=== PATIENT | male | born 1955 | race African-American/Black ===

== ENCOUNTER 2016-06-02 21:55 | Emergency (ER) | payer OTHER ==
[~2016-06-02 21:55] MED LIST: Dextrose 5 %-0.45 % NaCl 1000 ml Bag ONE
--- NOTE | 2016-06-02 22:30 | RAD ---
LEFT FOREARM TWO VIEWS: History: Fall, left arm injury. FINDINGS: The radius and ulnar are intact. No displaced fractures are apparent. IMPRESSION: No acute osseous abnormalities are demonstrated. POS: [facility]
[2016-06-02] MEDS ORDERED: Ondansetron HCl/PF 4 MG/2 ML Vial ONE (22:42)
[2016-06-02] MEDS ORDERED: Multivit, Adult Inj 10 ML VIAL ONE (22:42)
[2016-06-02] MEDS ORDERED: Ketorolac Tromethamine 30 MG/ML VIAL ONE (22:42)
[2016-06-02] MEDS ORDERED: Thiamine HCl 200 MG/2 ML VIAL ONE (22:42)
[2016-06-02 22:55] LABS: #Basophils 0.1 thou/uL (0.0-0.2); #Eosinphils 0.1 thou/uL (0.0-0.7); #Monocytes 0.9 thou/uL (0.11-0.59); #Neutrophils 3.8 thou/uL (1.40-6.50); %Basophils 1.3 % (0.0-1.0); %Eosinophils 1.5 % (0.0-10.0); %Lymphocytes 29.2 % (21.0-51.0); %Monocytes 12.4 % (0.0-10.0); %Neutrophils 55.7 % (42.0-75.0); Mean Corpuscular HGB CONC 33.5 g/dL (32.0-36.0); Mean Corpuscular Hemoglobin 30.8 pg (27.0-31.0); Mean Platelet Volume 7.8 fL (7.4-10.4); Platelet Count 193 thou/uL (130-400); RBC Distribution Width 13.2 % (11.5-14.5); Red Blood Cell (RBC) Count 3.89 mill/uL (4.70-6.10); White Blood Cell (WBC) Count 6.9 thou/uL (4.8-10.8)
[2016-06-02 23:11] LABS: Bilirubin Negative (Negative); Blood, Urine Trace (Negative); Clarity Clear (Clear); Glucose, Urine (Dipstick) Negative (Negative); Leukocyte Negative (Negative); Nitrite Negative (Negative); Protein, Urine (Dipstick) 30 mg/dL (Neg-Trace); Urobilinogen 0.2 mg/dL (0.2-1.0); pH, Urine 5.5 (5.0-9.0)
[2016-06-02 23:12] LABS: ALT (SGPT) 33 U/L (0-55); AST (SGOT) 48 U/L (5-34); Acetaminophen Less than 3.0 mcg/mL (10.0-30.0); Albumin 3.6 g/dL (3.4-4.8); Alcohol 43 mg/dL (Less than 10); Alkaline Phosphatase 82 U/L (40-150); Anion Gap 16 mmol/L (10-20); BUN (Urea Nitrogen) 41 mg/dL (8.4-25.7); Bilirubin, Total Less than 0.3 mg/dL (0.2-1.2); CK (CPK) 181 U/L (30-200); CKMB 3.1 ng/mL (0-6.6); Calc. Creatinine Clearance 0 mL/min (70-130); Calcium 8.6 mg/dL (7.8-10.44); Carbon Dioxide 13 mmol/L (23-31); Chloride 107 mmol/L (98-107); Estimated GFR-MDRD 38; Globulin 2.8 g/dL (2.4-3.5); Glucose 94 mg/dL (80-115); Potassium 4.9 mmol/L (3.5-5.1); Protein, Total 6.4 g/dL (5.8-8.1); Salicylate Less than 5.0 mg/dL (15.0-30.0); Sodium 131 mmol/L (136-145); Troponin I Less than 0.010 ng/mL (< 0.028)
[2016-06-02 23:18] LABS: Amphetamine Not Detected (NotDetected); Bacteria/HPF Rare-Few HPF (None Seen); Barbiturates Screen Not Detected (NotDetected); Benzodiazepine Screen Not Detected (NotDetected); Cocaine Metabolite Screen Detected (NotDetected); Medtox Control Line Valid? VALID (VALID); Methadone Not Detected (NotDetected); Methamphetamine Not Detected (NotDetected); Opiate Screen Not Detected (NotDetected); Oxycodone Screen Not Detected (NotDetected); Phencyclidine (PCP) Not Detected (NotDetected); THC/Cannabinoid Screen Not Detected (NotDetected); Tricyclic Screen Not Detected (NotDetected)
--- NOTE | 2016-06-02 23:26 | RAD ---
AP PELVIS ONE VIEW: History: Fall. Pelvic injury. FINDINGS: Sacrum is predominately obscured by bowel content. No displaced sacral fractures are apparent. There are mild degenerative changes of each hip. Right iliac crest is excluded from the image. IMPRESSION: No displaced pelvic fractures are apparent. POS: [facility]
--- NOTE | 2016-06-02 23:27 | RAD ---
LEFT HIP THREE VIEWS: History: Fall, left hip injury. FINDINGS: There is mild joint space narrowing and osteophytosis. Femoral head contours maintained. No acute fr acture or dislocation are evident. IMPRESSION: Mild osteoarthritic changes left hip. POS: [facility]
--- NOTE | 2016-06-02 23:30 | CT ---
CT HEAD NONCONTRAST: History: Fall. Head injury. FINDINGS: There is no evidence of acute intracranial hemorrhage or infarcts. The ventricles appear normal in s ize, shape, and position. Physiologic calcifications are associated with the basal ganglia. IMPRESSION: No acute intracranial abnormalities are demonstrated. POS: [facility]
[2016-06-02] MEDS ORDERED: Sulfameth/Trimethoprim DS 800-160mg TAB ONE ×2 (23:33)
--- NOTE | 2016-06-02 23:37 | CT ---
CT CERVICAL SPINE NONCONTRAST: History: Fall, neck injury. FINDINGS: There is straightening of the normal lordotic curvature. Vertebral body heights are maintained. No a cute fracture or dislocation are apparent. Osteophytosis and disc space narrowing are present throug hout the cervical spine. No acute fracture or dislocation are evident. Cystic change is evident at t he medial aspect of the right lung apex. IMPRESSION: 1. Cervical spondylosis. No acute osseous abnormalities are demonstrated. 2. COPD. POS: [facility]
== END 2016-06-02 22:40 | disposition home or self-care (01) ==
LOC: MADERS 21:55
DX: S00.03XA Contusion of scalp, initial encounter (principal); S59.911A Unspecified injury of right forearm, initial encounter; S79.912A Unspecified injury of left hip, initial encounter; D64.9 Anemia, unspecified; N39.0 Urinary tract infection, site not specified; I12.9 Hypertensive chronic kidney disease with stage 1 through stage 4 chronic kidney disease, or unspecified chronic kidney disease; N18.9 Chronic kidney disease, unspecified; Z21 Asymptomatic human immunodeficiency virus [HIV] infection status; F17.210 Nicotine dependence, cigarettes, uncomplicated; W19.XXXA Unspecified fall, initial encounter
CPT/HCPCS: 36415; 70450; 72125; 72170; 80053; 80306; 80307; 81003; 81015; 82550; 82553; 83880; 84484; 85025; 87086; 96365; 96375; J1885; J2405; J3411; J7042

== ENCOUNTER 2017-08-26 09:26 | Emergency (ER) | payer OTHER | END 2017-08-26 10:15 | disposition home or self-care (01) | LOC: MADERS 09:26 | DX: K02.9 Dental caries, unspecified (principal); K04.7 Periapical abscess without sinus; K03.81 Cracked tooth; I10 Essential (primary) hypertension; B20 Human immunodeficiency virus [HIV] disease; F17.210 Nicotine dependence, cigarettes, uncomplicated | CPT/HCPCS: 99282 ==

== ENCOUNTER 2017-09-04 16:23 | Emergency (ER) | payer OTHER ==
[2017-09-04] MEDS ORDERED: Bacitracin Zinc 1 Packet ONE ×2 (16:39→16:42)
[2017-09-04] MEDS ORDERED: Adacel (T-DAP) 0.5 ML VIAL ONE (16:47)
== END 2017-09-04 17:06 | disposition home or self-care (01) ==
LOC: MADERS 16:23
DX: S61.212A Laceration without foreign body of right middle finger without damage to nail, initial encounter (principal); I10 Essential (primary) hypertension; F32.9 Major depressive disorder, single episode, unspecified; F17.210 Nicotine dependence, cigarettes, uncomplicated; Z21 Asymptomatic human immunodeficiency virus [HIV] infection status; Z79.899 Other long term (current) drug therapy; W25.XXXA Contact with sharp glass, initial encounter
CPT/HCPCS: 90471; 90715; 99282

== ENCOUNTER 2018-04-07 09:31 | Emergency (ER) | payer OTHER ==
[~2018-04-07 09:31] MED LIST changes: +Amiodarone 150 MG/3 ML VIAL ONE; -Dextrose 5 %-0.45 % NaCl 1000 ml Bag ONE; +EPINEPHrine 1 MG/10 ML Abboject SYRINGE ONE; +Sodium Chloride 0.9% 1,000 ML BAG ONE
[2018-04-07 10:33] LABS: Critical Call w/ Read Back 154302; White Blood Cell (WBC) Count 4.4 thou/uL (4.8-10.8)
[2018-04-07 10:34] LABS: Hemoglobin 8.6 g/dL (14.0-18.0); Mean Corpuscular HGB CONC 31.1 g/dL (32.0-36.0); Mean Corpuscular Hemoglobin 29.4 pg (27.0-31.0); Mean Corpuscular Volume 94.3 fL (78.0-98.0); Mean Platelet Volume 8.3 fL (7.4-10.4); Platelet Count 41 thou/uL (130-400); RBC Distribution Width 14.4 % (11.5-14.5); Red Blood Cell (RBC) Count 2.94 mill/uL (4.70-6.10)
[2018-04-07 10:35] LABS: Manual Diff?? YES
[2018-04-07 10:41] LABS: Band 2 % (5-11); Lymphocytes 57 % (21-51); MDiff Complete? YES; Neutrophil 34 % (42-75)
[2018-04-07 10:42] LABS: Anisocytosis SLIGHT = 6-15 cells (100X) (0-5/hpf); Monocytes 7 % (0-10); Platelet Morphology Comment Appears Decreased
[2018-04-07 18:11] LABS: HBSAg Index 0.27 S/CO (0-0.99); Hep B Surf Ag Non-Reactive S/CO (NonReactive)
[2018-04-07 18:35] LABS: HIV (1/2) Antibody/Antigen Reflxed Confirmation (NonReactive); HIV 1/2 INDEX 486.97 S/CO (<1.00); Hep C IgG Ab Reflex HepC Qnt (NonReactive); Hep C Index 11.46 S/CO (0-0.79)
== END 2018-04-07 12:55 | disposition expired ==
LOC: MADERS 09:31
DX: I46.9 Cardiac arrest, cause unspecified (principal); M19.90 Unspecified osteoarthritis, unspecified site; I10 Essential (primary) hypertension; F17.210 Nicotine dependence, cigarettes, uncomplicated; F32.9 Major depressive disorder, single episode, unspecified
CPT/HCPCS: 36416; 36430; 85025; 86701; 86702; 86803; 86850; 86900; 86901; 87340; 87389; 87522; 87536; 96374; 96375; J0171; J0282; J7050; P9016